=== PATIENT | male | born 1980 | race Caucasian/White ===

== ENCOUNTER 2017-10-31 20:55 | Emergency (ER) | payer SELFPAY ==
--- NOTE | 2017-10-31 21:20 | ED ---
Altered Mental Status - HPI Summary HPI Summary: Pt presents today via ambulance with AMS. Pt was found in his car with decreased responsiveness. Pt was given IV narcan via EMS with improvement in symptoms. Pt denies any drug use today. pt states he has been drinking alcohol today, but not heavily. Pt denies any headache or blurred vision. - History Of Current Complaint Stated Complaint: OVERDOSE Time Seen by Provider: 10/31/17 21:02 Hx Obtained From: Patient, EMS Onset/Duration: Suddenly Alleviating Factor(s): Other - Narcan Associated Signs And Symptoms: Positive: Negative - Risk Factors Cardiac Risk Factors: Negative CVA Risk Factor: Negative PMH/Surg Hx/FS Hx/Imm Hx Endocrine/Hematology History: Denies: Hx Diabetes Cardiovascular History: Denies: Hx Hypertension, Hx Pacemaker/ICD Respiratory History: Denies: Hx Asthma History: Denies: Hx Renal Disease Sensory History: Denies: Hx Hearing Aid Psychiatric History: Denies: Hx Panic Disorder - Surgical History Surgery Procedure, Year, and Place: SPINAL TAP EARLY Review of Systems Constitutional: Negative All Other Systems Reviewed And Are Negative: Yes Physical Exam Triage Information Reviewed: Yes Vital Signs Reviewed: Yes Appearance: Positive: Well-Appearing, No Pain Distress, Well-Nourished Skin: Positive: Warm, Skin Color Reflects Adequate Perfusion, Dry Head/Face: Positive: Normal Head/Face Inspection Eyes: Positive: Normal, EOMI, EFREN ENT: Positive: Normal ENT inspection Neck: Positive: Supple, No Lymphadenopathy Respiratory/Lung Sounds: Positive: Clear to Auscultation Cardiovascular: Positive: Normal, RRR, Pulses are Symmetrical in both Upper and Lower Extremities Abdomen Description: Positive: Nontender Neurological: Positive: Normal, Alert, Oriented to Person Place, Time Psychiatric: Positive: Normal Altered Mental Statu Course/Dx - Course Course Of Treatment: Pt resfusing an further treatment at this time. Pt AAOx3 and able to make his own decisions. I explained to pt need to assess for new AMS. I explained to pt risk of or wrosening/return of symptoms. pt continues to refuse further evaluation at this time. - Diagnoses Provider Diagnoses: Altered mental status Discharge - Sign-Out/Discharge Documenting (check all that apply): Discharge/Admit/Transfer - Discharge Plan Condition: Stable Disposition: AGAINST MEDICAL ADVICE Referrals: Aristeo ARZATE,Bonita Goyal [Primary Care Provider] - - Billing Disposition and Condition Condition: STABLE Disposition: Against Medical Advice
[2017-10-31 21:26] VITALS: BP 00/00
== END 2017-10-31 21:25 | disposition left against medical advice (07) ==
LOC: ED 20:55
DX: R41.82 Altered mental status, unspecified (principal)
CPT/HCPCS: 99282

== ENCOUNTER 2019-07-06 10:48 | Emergency (ER) | payer MEDICAID, OTHER ==
[2019-07-06 11:08] VITALS: BP 133/75
--- NOTE | 2019-07-06 11:20 | UC ---
FLU HPI - HPI Summary HPI Summary: 38 yo with hx of asthma with 4 days of myalgias, cough, malaise and subjective fever. He has been using acetaminophen and ibuprofen around the clock. Last used albuterol about 6 to 8 hours ago; tends to use albuterol once or twice daily in the winter. - History of Current Complaint Chief Complaint: UCRespiratory Stated Complaint: BODY ACHES Time Seen by Provider: 07/06/19 11:10 Hx Obtained From: Patient Onset/Duration: Gradual Onset Severity Currently: Moderate Severity Initially: Moderate Pain Intensity: 10 Associated Signs & Symptoms: Positive: Fever, Myalgia, Nasal Congestion, Headache. Negative: Vomiting, Diarrhea - Risk Factors Influenza Risk Factors: Negative - Allergy/Home Medications Allergies/Adverse Reactions: Allergies Allergy/AdvReac Type Severity Reaction Status Date / Time No Known Allergies Allergy Verified 07/06/19 11:08 Home Medications: Home Medications Acetaminophen TAB* [Tylenol TAB*] 650 mg PO Q4H PRN 07/06/19 [History Confirmed 07/06/19] Ibuprofen TAB* [Motrin TAB* 800 MG] 800 mg PO Q6H PRN 07/06/19 [History Confirmed 07/06/19] PMH/Surg Hx/FS Hx/Imm Hx Previously Healthy: Yes Respiratory History: Asthma - Surgical History Surgical History: None Surgery Procedure, Year, and Place: SPINAL TAP EARLY - Family History Known Family History: Positive: Cardiac Disease, Other - mother has had a stroke. - Social History Occupation: Employed Full-time Lives: With Family Alcohol Use: Daily Substance Use Type: None Smoking Status (MU): Former Smoker When Did the Patient Quit Smoking/Using Tobacco: 1 yr Review of Systems All Other Systems Reviewed And Are Negative: Yes Constitutional: Positive: Fever, Fatigue Skin: Positive: Negative Eyes: Positive: Negative ENT: Positive: Nasal Discharge Respiratory: Positive: Shortness Of Breath, Cough Cardiovascular: Positive: Negative Gastrointestinal: Positive: Negative Genitourinary: Positive: Negative Motor: Positive: Negative Musculoskeletal: Positive: Arthralgia, Myalgia Neurological/Mental Status: Positive: Headache Psychological: Positive: Negative Is Patient Immunocompromised?: No Physical Exam Triage Information Reviewed: Yes Appearance: Ill-Appearing - looks mildly unwell, Thin Vital Signs: Initial Vital Signs Temp 98.6 F 07/06/19 11:03 Pulse 88 07/06/19 11:03 Resp 16 02/17/20 11:03 BP 133/75 07/06/19 11:03 Pulse Ox 98 07/06/19 11:03 Eye Exam: Normal ENT: Positive: Pharyngeal erythema. Negative: Tonsillar swelling, Tonsillar exudate Neck: Positive: Supple, Nontender, No Lymphadenopathy Respiratory: Positive: Lungs clear, Normal breath sounds Cardiovascular: Positive: RRR, No Murmur Musculoskeletal Exam: Normal Neurological Exam: Normal Psychological Exam: Normal Skin Exam: Normal Diagnostics - Laboratory Lab Results: influenza B positive Flu Course/Dx - Course Course Of Treatment: symptomatic treatment of influenza, albuterol for relief of cough of wheeze. - Differential Dx/Diagnosis Differential Diagnosis/HQI/PQRI: Influenza, Upper Respiratory Infection Provider Diagnosis: Influenza B Discharge ED - Sign-Out/Discharge Documenting (check all that apply): Patient Departure All imaging exams completed and their final reports reviewed: No Studies - Discharge Plan Condition: Stable Disposition: HOME Prescriptions: Albuterol HFA INHALER* [Ventolin HFA Inhaler*] 2 puff INH Q6H PRN #1 mdi PRN Reason: Wheezing Patient Education Materials: Influenza (ED) Referrals: No Primary Care Phys,NOPCP [Primary Care Provider] - Additional Instructions: Continue use of ibuprofen and aceteminophen for control of symptoms. Use albuterol as needed to relieve wheeze. If you have increasing shortness or chest pain, return for follow up. You can anticipate another few days of symptoms. - Billing Disposition and Condition Condition: STABLE Disposition: Home
[2019-07-06 11:21] LABS: Influenza B Molecular POSITIVE (Negative)
== END 2019-07-06 12:45 | disposition home or self-care (01) ==
LOC: UCEAST 10:48
DX: J10.1 Influenza due to other identified influenza virus with other respiratory manifestations (principal); J45.909 Unspecified asthma, uncomplicated; Z87.891 Personal history of nicotine dependence
CPT/HCPCS: 99212; G0463